=== PATIENT | male | born 1980 | race Caucasian/White ===

== ENCOUNTER 2019-08-18 02:53 | Emergency (ER) | payer SELFPAY ==
--- NOTE | ~2019-08-18 | XR_ITS ---
EXAMINATION: XR chest 2V DATE: 08/18/2019 03:56 INDICATION: 2-3 hours of shortness of breath. TECHNIQUE: PA and lateral views of the chest were obtained. COMPARISON: None FINDINGS: The lungs are clear with no focal airspace opacities, pulmonary edema, pleural effusion or pneumothor ax. The cardiomediastinal silhouette is normal. Mild thoracic spondylosis. IMPRESSION: 1. No acute cardiopulmonary disease. Reviewed, dictated and finalized at location A.
[2019-08-18 02:54] VITALS: BP 163/108; PULSE 86; RESP 20; TEMP 36.5; O2SAT 100
--- NOTE | 2019-08-18 03:02 | ED.GENADULT ---
HPI - General Adult General Chief complaint: Upper Respiratory Infection Stated complaint: throat tightening Time Seen by Provider: 08/18/19 03:01 History of Present Illness HPI narrative: Patient is a 38-year-old male who presents the ER with concerns of possible allergic reaction. Patient reports he is lying down in bed and woke up and he was gagging having trouble breathing. [place] like he had acid in the back of his throat. Symptoms are worse if he lays down flat better if he sits upright. He has had some similar symptoms to this over the last 2 days. Denies history of obstructive sleep apnea. He has no issues breathing or swallowing at this time. No rhinorrhea/productive cough. Patient notes he has had a migraine over the last couple of days for which she is taking a triptan which seems to make things worse. Reports he has no headache at this time. Related Data Home Medications Medication Instructions Recorded Confirmed No Home Medications 08/18/19 08/18/19 Allergies Allergy/AdvReac Type Severity Reaction Status Date / Time No Known Allergies Allergy Verified 08/18/19 02:56 Review of Systems Review of Systems: All systems reviewed & are unremarkable except as noted in HPI and below Constitutional: Constitutional: Denies chills, Denies fever(s) and Denies weakness ENT: Denies dysphagia, Denies nasal congestion and Reports sore throat Cardiovascular: Cardiovascular: Denies chest pain and Denies radiating jaw, neck or arm pain Respiratory: Respiratory: Denies cough, Reports dyspnea and Denies wheezing Gastrointestinal: Gastrointestinal: Denies abdominal pain, Denies nausea and Denies vomiting Neurologic: Denies dizziness, Reports headache(s) and Denies numbness PMFSH Past Medical History Medical History (Updated 08/18/19 @ 04:36 by Yvan Healy MD) No pertinent past medical history Surgical History Surgical History (Updated 08/18/19 @ 03:50 by Yvan Healy MD) No significant past surgical history Social History Social History (Updated 08/18/19 @ 03:50 by Yvan Healy MD) Smoking status: Never smoker Substance use: never Gender identity (if verbalized by the patient): Male Exam Narrative: Exam Narrative: GENERAL: Well-appearing, well-nourished, and in no acute distress. HEAD: Normocephalic, atraumatic. ENT: Mucous membranes moist. No pharyngeal erythema or tonsillar hypertrophy/exudate. Uvula midline and nonedematous. NECK: Supple. CHEST: Clear to auscultation. No respiratory distress. HEART: Regular rate and rhythm. Normal peripheral pulses. ABDOMEN: Soft, nontender, nondistended. EXTREMITIES: Normal range of motion. No edema. NEURO: Alert and oriented x3. PSYCH: Normal mood and affect. Course Course Emergency Course: Patient feels very good at this time. Received Pepcid. Discharge home. Vital Signs Vital signs: Vital Signs Temperature 97.7 F 08/18/19 02:54 Pulse Rate 86 08/18/19 02:54 Respiratory Rate 20 08/18/19 02:54 Blood Pressure 163/108 H 08/18/19 02:54 Pulse Oximetry 100 08/18/19 02:54 Temperature 97.7 F 08/18/19 02:54 Pulse Rate 68 08/18/19 03:58 Respiratory Rate 12 08/18/19 03:58 Blood Pressure 133/98 H 08/18/19 03:58 Pulse Oximetry 97 08/18/19 03:58 Medical Decision Making Vital Signs Vital Signs: Vital Signs Temperature 97.7 F 08/18/19 02:54 Pulse Rate 86 08/18/19 02:54 Respiratory Rate 20 08/18/19 02:54 Blood Pressure 163/108 H 08/18/19 02:54 Pulse Oximetry 100 08/18/19 02:54 Temperature 97.7 F 08/18/19 02:54 Pulse Rate 68 08/18/19 03:58 Respiratory Rate 12 08/18/19 03:58 Blood Pressure 133/98 H 08/18/19 03:58 Pulse Oximetry 97 08/18/19 03:58 Lab Data Result diagrams: 08/18/19 03:47 08/18/19 03:47 Labs: Lab Results 08/18/19 08/18/19 Range/Units 03:47 03:47 WBC 5.1 (4.5-10.0) K/mm3 RBC 4.77 (4.6-6.20) M/m
[2019-08-18] MEDS: FAMOTIDINE 20 MG TABLET PO (03:51)
[2019-08-18 03:55] LABS: Basophils Absolute Auto 0.1 K/mm3 (0.0-0.1); Basophils Percent Auto 1.6 % (0.2-1.2); Eosinophils Absolute Auto 0.2 K/mm3 (0-0.3); Eosinophils Percent Auto 4.5 % (0-4.4); Hemoglobin 14.2 g/dL (14.0-18.0); Immature Granulocyte Absolute 0.01 K/mm3 (0.00-0.031); Immature Granulocyte Percent A 0.2 % (0-0.5); Lymphocytes Absolute Auto 2.09 K/mm3 (0.9-3.2); Lymphocytes Percent Auto 41.1 % (18.3-44.2); Mean Corpuscular HGB Conc 33.8 g/dl (32-36); Mean Corpuscular Hemoglobin 29.8 pg (26-34); Mean Corpuscular Volume 88.1 fl (80-100); Mean Platelet Volume 12.9 fl (7.4-10.4); Monocytes Absolute Auto 0.3 K/mm3 (0.1-0.6); Monocytes Percent Auto 6.5 % (2.6-8.5); Neutrophils Absolute Auto 2.4 K/mm3 (1.3-6.7); Neutrophils Percent Auto 46.1 % (45.5-73.1); Platelet Count Result 166 k/mm3 (150-375); Red Blood Count 4.77 M/mm3 (4.6-6.20); Red Cell Distribution Width 13.8 % (11.5-14.5); White Blood Count 5.1 K/mm3 (4.5-10.0)
[2019-08-18 03:58] VITALS: BP 133/98; PULSE 68; RESP 12; O2SAT 97
[2019-08-18 04:08] LABS: Blood Urea Nitrogen 11 mg/dL (9-20); Carbon Dioxide 28 mmol/L (22-30); Chloride 105 mmol/L (98-107); Estimated Glomerular Filt Rate > 60; Glucose 102 mg/dL (75-110); Potassium 3.9 mmol/L (3.4-5.0); Sodium 138 mmol/L (137-145)
[2019-08-18 04:20] LABS: NT Pro B Type Natriuretic Pept 46 PG/ML (5-100); Troponin I < 0.012 ng/mL (0.000-0.034)
[2019-08-18 04:45] VITALS: BP 134/95; PULSE 67; RESP 16; O2SAT 97
[2019-08-18 04:49] VITALS: BP 134/95; PULSE 70; RESP 20; O2SAT 99
== END 2019-08-18 04:51 | disposition home or self-care (01) ==
PROVIDERS: Emergency Provider Emergency Medicine
DX: J02.9 Acute pharyngitis, unspecified (principal)
CPT/HCPCS: 36415; 71046; 80048; 83880; 84484; 85025; 99284; A9270

== ENCOUNTER 2019-11-03 13:40 | Emergency (ER) | payer SELFPAY ==
[2019-11-03 13:42] VITALS: BP 115/85; PULSE 92; RESP 16; TEMP 36.8; O2SAT 100
--- NOTE | 2019-11-03 14:52 | ED.WOUNDLAC ---
HPI - Wound/Laceration General Chief Complaint: Wound/Laceration Stated Complaint: L 4TH DIGIT WOUND Time Seen by Provider: 11/03/19 13:57 Source: patient Mode of arrival: ambulatory Limitations: no limitations History of Present Illness HPI narrative: Patient presents for evaluation of laceration to the volar aspect of the left ring finger. Patient cut the finger, on a nail and caused a flap. Patient states that he believes he has had a tetanus within the last 5 years. Patient has full range of motion to the extremity and denies bony tenderness or crush injury. Patient states that he washed out the area then came to the emergency room. Patient denies any other concerns. Related Data Allergies Allergy/AdvReac Type Severity Reaction Status Date / Time No Known Allergies Allergy Verified 11/03/19 13:53 Review of Systems Review of Systems: Narrative: CONSTITUTIONAL: Denies fever, chills, or sweats. EYES: Denies visual changes, redness, or discharge. ENT: Denies rhinorrhea, congestion, sore throat, or otalgia. CARDIOVASCULAR: Denies chest pain, palpitations, or edema. RESPIRATORY: Denies cough or dyspnea. GASTROINTESTINAL: Denies abdominal pain, nausea, vomiting, or diarrhea. GENITOURINARY: Denies dysuria or hematuria. SKIN: Reports laceration denies rash or itching. MUSCULOSKELETAL: Denies back pain, joint pain, or myalgia. NEUROLOGIC: Denies headache, numbness, dizziness, or weakness. PSYCHIATRIC: Denies anxiety or depression. PMFSH Past Medical History Medical History (Updated 11/03/19 @ 14:57 by Vega Herrera PA-C) No pertinent past medical history Surgical History Surgical History (Updated 08/18/19 @ 03:50 by Yvan Healy MD) No significant past surgical history Social History Social History (Updated 08/18/19 @ 03:50 by Yvan Healy MD) Smoking status: Never smoker Substance use: never Gender identity (if verbalized by the patient): Male Exam Narrative: Exam Narrative: GENERAL: Well-appearing, well-nourished, and in no acute distress. HEAD: Normocephalic, atraumatic. EYES: PERRLA and EOMI. ENT: Nares clear, no rhinorrhea or epistaxis. Mucous membranes moist. Oropharynx without tonsillar hypertrophy exudate or other lesions. Bilateral TMs pearly singer nonbulging NECK: Supple. No adenopathy or masses. No carotid bruits or JVD CHEST: Clear to auscultation. No respiratory distress. No wheezes rales or rhonchi HEART: Regular rate and rhythm. EXTREMITIES: Normal range of motion. No edema. SKIN: U-shaped flap laceration to the volar aspect of left ring finger. Bleeding is minimal warm, dry, no rash. NEURO: No focal deficits. Alert and oriented x3. PSYCH: Normal mood and affect. Course Vital Signs Vital signs: Vital Signs Temperature 98.3 F 11/03/19 13:42 Pulse Rate 92 11/03/19 13:42 Respiratory Rate 16 11/03/19 13:42 Blood Pressure 115/85 11/03/19 13:42 Pulse Oximetry 100 11/03/19 13:42 Temperature 98.3 F 11/03/19 13:42 Pulse Rate 92 11/03/19 13:42 Respiratory Rate 16 11/03/19 13:42 Blood Pressure 115/85 11/03/19 13:42 Pulse Oximetry 100 11/03/19 13:42 Procedures Laceration Laceration 1: Site: other (Ring finger) Side (If applicable): left Size (cm): 2 Description: flap Depth: simple, single layer Pre-repair: irrigated extensively ====== Skin Level ====== Skin layer closed with: dermabond ====== Subcutaneous Layer ====== ====== Muscle Layer ====== ====== Tendon Layer ====== Discharge Plan Discharge Clinical Impression: Laceration Patient Disposition: Home, Self-Care Condition: Improved Instructions: Antibiotic Form, Laceration (ED) Additional Instructions: Keep wound clean and avoid injury to the area. Allow Dermabond to naturally disintegrate over time and allow wound to heal. Follow-up with primary care if you have any signs of infection. Return
[2019-11-03 15:19] VITALS: BP 136/87; PULSE 86; RESP 18; TEMP 36.6; O2SAT 100
== END 2019-11-03 15:21 | disposition home or self-care (01) ==
PROVIDERS: Emergency Provider Emergency Medicine
DX: S61.215A Laceration without foreign body of left ring finger without damage to nail, initial encounter (principal); W45.0XXA Nail entering through skin, initial encounter
CPT/HCPCS: 12001; 99282

== ENCOUNTER 2023-09-11 15:47 | Emergency (ER) | payer OTHER, SELFPAY ==
[2023-09-11 16:00] VITALS: BP 214/112; PULSE 100; RESP 16; TEMP 37.8; O2SAT 100
[2023-09-11 16:18] VITALS: BP 170/106; BP 185/100
--- NOTE | 2023-09-14 23:16 | ED.DENTAL ---
HPI - Dental/Oral General Chief complaint: Dental/Oral Stated complaint: tooth pain Time Seen by Provider: 09/11/23 16:56 Source: patient, RN notes reviewed and old records reviewed Mode of arrival: ambulatory Limitations: no limitations History of Present Illness HPI Narrative: 42-year-old male to Express Care with complaint of left upper dental pain that started 4 days ago. Patient cannot recall last visit to dentist and reports that he does not currently have a dentist. Patient hypertensive in [facility] states he has taken his medicine today. Patient also endorses that he does not have a PCP. Patient has attempted to treat dental pain at home with [id number] medications with little relief. Patient endorses increased pain and swelling. Patient denies cough, sore throat, difficulty swallowing, shortness of breath, chest pain, jaw pain, ear pain, allergies. Patient hypertensive and febrile in triage. Patient alert and oriented x3. Respirations even and nonlabored. Patient in no acute distress. Related Data Allergies Allergy/AdvReac Type Severity Reaction Status Date / Time No Known Allergies Allergy Verified 11/03/19 13:53 Review of Systems Review of Systems: All systems reviewed & are unremarkable except as noted in HPI and below Constitutional: Constitutional: Reports as per HPI, Reports difficulty sleeping, Denies excessive sweating, Denies headache(s) and Denies poor appetite Eyes: Eyes: Reports no additional eye complaints ENT: Reports as per HPI, Reports dental pain, Denies otalgia, Denies headache(s), Denies hoarseness, Reports mouth pain, Denies neck pain, Denies sore throat and Denies throat swelling Cardiovascular: Cardiovascular: Reports no additional cardiovascular complaints, Denies chest pain and Denies dyspnea Respiratory: Respiratory: Reports no additional respiratory complaints, Denies cough and Denies dyspnea Musculoskeletal: Musculoskeletal: Reports no additional musculoskeletal complaints Neurologic: Reports system reviewed and no additional complaints, except as documented Psychiatric: Psychiatric: Reports no additional psychiatric complaints PMFSH Past Medical History Medical History No pertinent past medical history Surgical History Surgical History No significant past surgical history Social History Social History Smoking status: Never smoker Substance use: never Gender identity (if verbalized by the patient): Male Comments At the time of my signature, I reviewed and agree with the nursing past medical, surgical, social, and family history. There is no relevant family history pertinent to the patient complaint. Exam Const: General: cooperative, no acute distress, alert, anxious, uncomfortable and well nourished Nutritional Appearance: well nourished Orientation/consciousness: patient oriented x3 Limitations: no limitations HENMT: Head: normal to inspection Ears: external ears normal Face/Nose/Sinus: Normal external nose present, Normal nares present, normal facial exam, No erythema and No edema Face and sinus: normal facial exam, no erythema and no edema Mouth: Yes Normal oral and palatal mucosa present Teeth and gingiva: abnormal tooth and associated gingiva, caries, gingiva abnormal diffusely erythematous, tender and receding, multiple restorations and poor dentition Throat: postnasal drainage Eyes: General: appearance normal, both eyes and all related structures Neck: Neck: normal visual inspection, full ROM and no meningeal signs Lymphatic: no lymphadenopathy noted and no lymphedema noted Chest: Chest palpation & inspection: normal inspection of the chest Resp: Effort & Inspection: normal respiratory effort and able to speak in complete sentences Auscultation: clear to auscu
== END 2023-09-11 17:01 | disposition home or self-care (01) ==
PROVIDERS: Emergency Provider Nurse Practitioner Family
DX: K02.9 Dental caries, unspecified (principal); K04.7 Periapical abscess without sinus; S02.5XXA Fracture of tooth (traumatic), initial encounter for closed fracture; X58.XXXA Exposure to other specified factors, initial encounter
CPT/HCPCS: 99213; G0463

== ENCOUNTER 2024-03-14 11:49 | Emergency (ER) | payer OTHER, SELFPAY ==
[2024-03-14 11:54] VITALS: BP 174/108; PULSE 85; RESP 20; TEMP 36.8; O2SAT 100
--- NOTE | 2024-03-14 11:59 | ED_ITS ---
HPI - Male Genitourinary General Chief complaint: Urogenital-Male Stated complaint: Urinary Problem Time Seen by Provider: 03/14/24 12:07 Source: patient, RN notes reviewed and old records reviewed Mode of arrival: ambulatory Limitations: no limitations History of Present Illness HPI Narrative: 43 year old male who presents to express car with complaints of left lower abdominal pain radiating around from left CVA area with pain starting last night and increased pain since this morning Patient reports that he also noted blood in his urine yesterday. Patient reports that he has no urinary frequency or urgency or burning with urination,no fevers nausea or vomiting or any concerns for STD's. MD Complaint: other (Left CVA pain radiating aroundto left lower abdomen) Onset (ago): day(s) (since last night increased pain) Location: left flank and abdomen (left lower abdomen) Severity scale (1-10): 8 Related Data Home Medications ?Medication ?Instructions ?Recorded ?Confirmed ?Last Taken ?Type amlodipine 5 mg tablet mg 03/14/24 Unknown History gabapentin 300 mg capsule mg 03/14/24 Unknown History hydroxyzine HCl 25 mg tablet mg 03/14/24 Unknown History Allergies Allergy/AdvReac Type Severity Reaction Status Date / Time No Known Allergies Allergy Verified 03/14/24 11:58 Review of Systems Review of Systems: CONSTITUTIONAL: Denies fever, chills, or sweats. CARDIOVASCULAR: Denies chest pain, palpitations, or edema. RESPIRATORY: Denies cough or dyspnea. GASTROINTESTINAL: reports left lower abdominal pain, denies any nausea, vomiting, or diarrhea. GENITOURINARY: Denies dysuria, frequency, urgency. reports left flank pain or hematuria. SKIN: Denies rash or itching. MUSCULOSKELETAL: Denies back pain or myalgia. positive for left CVA pain radiating around to left abdomen NEUROLOGIC: Denies headache All systems reviewed & are unremarkable except as noted in HPI and below PMFSH Past Medical History Medical History (Updated 03/16/24 @ 16:53 by Daniella Ocampo NP) Dental abscess Neuropathic pain of both legs Hypertension Anxiety Surgical History Surgical History No significant past surgical history Social History Social History (Updated 03/14/24 @ 12:10 by Daniella L. Damaris, [employer]) Smoking status: Current every day smoker Tobacco type: e-cigarettes/vaping Substance use: never Gender identity (if verbalized by the patient): Male Comments At time of signature, agree with nursing past medical, surgical, social and family history. There is no relevant family history pertinent to the presenting complaint Exam Narrative: GENERAL: Well-appearing, well-nourished, and in some acute distress related to pain HEAD: Normocephalic, atraumatic. NECK: Supple. no lymphadenopathy CHEST: Clear to auscultation. No respiratory distress.SAO2 100% on room air HEART: Regular rate and rhythm. No murmur heard. Normal peripheral pulses. ABDOMEN: Soft, tender left lower abdomen nondistended, normal active bowel sounds. positive for left CVA tenderness, reports that last BM yesterday normal. EXTREMITIES: Normal range of motion. No edema. SKIN: Warm, dry, no rash. NEURO: No focal deficits. Alert and oriented x3. Course Course Emergency Course: Patient is aware of diagnosis, understands and agrees to treatment plan.? Anticipatory guidance given.? Patient agrees to follow-up as directed and is aware of reasons to seek care at the emergency department. Portions of this record may have been created with voice recognition software Level of Care: Express Care Visit Vital Signs Vital signs: Vital Signs Temperature 36.8 C 03/14/24 11:54 Pulse Rate 85 03/14/24 11:54 Respiratory Rate 20 03/14/24 11:54 Blood Pressure 174/108 H 03/14/24 11:54 Pulse Oximetry 100 03/14/24 11:54 Oxygen Delivery Room Air 03/14/24 11:54 Temperature 36.8 C 03/14/24 11:54 Pulse Rate 85 03/14/24 11:54 Respiratory Rate 20 03/14/24 11:54 Blood Pressure 174/108 H 03/14/24 11:54 Pulse Oximetry 100 03/14/24 11:54 Oxygen Delivery Room Air 03/14/24 11:54 Transfer Transfered to: [facility]) Transportation: Other (private car) Transfer rationale: left lower abdominal pain and CVA tenderness with blood noted in urine needs further diagnostic studies and higher level of care. Accepting physician: Eliu Shaw comments: Transfer to [facility] per private car for further evaluation, patient instructed on NPO status MDM - Male Genitourinary MDM Narrative Medical decision making narrative: 1223 Call placed to the ED department of [facility] with condition update, VS, PMH reviewed with Faith RN with Dr Nowak accepting physician. Differential Diagnosis Differential diagnosis: Likely urinary tract infection, urethritis and other (hematuria, left lower abdomen pain, left flank pain, urolithiasis, renal colic) Medical Records Attestation: I reviewed the patient's medical records. Lab Data Attestation: I reviewed the patient's lab results. Lab results narrative: urine dip:see report 3+ blood urine tea colored cloudy 1+ protein Labs: Lab Results 03/14/24 Range/Units 12:04 POC Urine Color Dark POC Urine Clarity Cloudy POC Urine pH 6.0 POC Ur Specif [place] 1.030 POC Urine Protein 1+ (Negative) POC Ur Glucose (UA) Negative (Negative) POC Urine Ketones Negative (Negative) POC Urine Blood 3+ (Negative) POC Urine Nitrite Negative (Negative) POC Urine Bilirubin Negative (Negative) POC Urine Urobilinogen 0.2 POC U Leukocyte Esteras Negative (Negative) reviewed Critical Care Time Critical Care Time Critical Care Time: No Discharge Plan Discharge Clinical Impression: Abdominal pain, left lower quadrant, Left flank pain Hematuria Qualifiers: Hematuria type: other microscopic Qualified Code(s): R31.29 - Other microscopic hematuria Patient Disposition: Acute Care Hospital Condition: Stable Patient Language: Austrian Prescriptions: No Action amlodipine 5 mg tablet gabapentin 300 mg capsule hydroxyzine HCl 25 mg tablet Follow-up/Referrals: PHYSICIAN NOT ON STAFF,NONSTAFF [Primary Care Provider] - Time of Disposition: 12:29 Quality Carly Coma Scale Eyes: Open Verbal: Oriented and Alert Motor: Follows Commands Carly Coma Total Score: 15
[2024-03-14 12:06] LABS: EDUAAPPEAR Cloudy; EDUABILI Negative (Negative); EDUABLOOD 3+ (Negative); EDUACOLOR1 Dark; EDUAGLUCOSE Negative (Negative); EDUAKETONE Negative (Negative); EDUALEUKO Negative (Negative); EDUANITRATE Negative (Negative); EDUAPROTEIN 1+ (Negative); EDUAUROBILI 0.2
--- OUTSIDE RECORDS SUMMARY | 2024-03-14 12:44 | XMS_ITS | Patient Health Record ---
Author Organization [facility] alth Planning Address [address] [place] [id number] Care Team Providers Care Steel Fabricating Supervisor Name Role Phone Bertin Maravilla Primary Care Provider Reason For Referral No Information Medications Medication SIG (Take, Route, Frequency, Duration) Notes Start Date End Date Status Ambien 10 MG 1 Tablet Orally At bedtime Active Ibuprofen 600 MG 1 Tablet Orally Thre e times a day 10/19/2017 Active Melatonin 5 MG 1 Tablet Orally At bedtime Active Gabapentin 300 MG 1 capsule Orally three times a day 10/19/2017 Active Escitalopram Oxalate 10 MG 2 tablets Orally Daily 10/19/2017 Active Suboxone 8-2 MG 1 film under the tongue and allow to dissolve Sublingual Once a day 10/29/2017 Active hydrOXYzine Pamoate 50 MG 1 capsule Orally every 6 hrs as needed 10/19/2017 Active Depakote 250 MG take 1 tablet (250MG ) by oral route in the morning and two at night. Oral ([facility]) 11/19/2012 Not-Taking Social History Tobacco Use: Social History Observation Description Date Details (start date - stop date) Never Smoker NA - NA Tobacco Use/Smoking Question Answer Notes Are you a nonsmoker Alcohol Screen (Audit-C) Question Answer Notes Did you have a drink containing alcohol in the p ast year? No Points 0 Interpretation Negative Problems Problem Type SNOMED Code ICD Code Onset Dates Problem Status W/U Status Risk Notes Problem 544701132 Bipolar 1 disorder (F31.9) Active confirmed Problem 2945475 Opiate abuse, continuous (F11.10) Active confirmed Problem 11089995 TOREY (generalized anxiety disorder) (F41.1) Active confirmed Plan Of Treatment No Information Insurance Providers Payer Name Payer Address Payer Phone Subscriber Number Group Number Insured Name Patient Relationship to Insured Coverage Start Date Coverage End Date [facility] [address] [place] [address] [id number] Jacob Rollins Self - patient is the insured 8 [facility] FFS [address] [place] [address] [id number] Jacob Rollins Self - patient is the insured 8 [facility] Non Billable [address] [facility] [place] [address] [id number] Jacob Rollins Self - patient is the insured 8 Medical (General) History Medical History History ICD Code Med_System: pulmonary; Disease: Episodes of some difficulty breathing Med_System: neurologic; Disease: Hx of s eizures Med_System: gastrointestinal; Disease: H x of acid reflux
== END 2024-03-14 12:29 | disposition short-term general hospital (02) ==
PROVIDERS: Emergency Provider Registered Nurse
DX: R10.32 Left lower quadrant pain (principal); R10.9 Unspecified abdominal pain; R31.29 Other microscopic hematuria; F17.290 Nicotine dependence, other tobacco product, uncomplicated; I10 Essential (primary) hypertension; G62.9 Polyneuropathy, unspecified; F41.9 Anxiety disorder, unspecified
CPT/HCPCS: 81003; 87086; 99212; 99213; G0463

== ENCOUNTER 2024-11-08 15:49 | Emergency (ER) | payer OTHER, SELFPAY ==
--- OUTSIDE RECORDS SUMMARY | 2024-11-08 15:51 | XMS_ITS | Patient Health Record ---
Author Organization [facility] Address [address] [facility] [address] [place] [address] Care Team Providers Care Office Systems Technology Instructor Name Role Phone Bertin Maravilla Primary Care Provider [phone] Reason For Referral No Information Medications Medication [...] Problem Status W/U Status Risk Notes Problem Bipolar 1 disorder (401821916) Bipolar 1 disorder (F31.9) Active confirmed Problem Opioid abuse (0796002) Opiate abuse, continuous (F11.10) Active confirmed Problem Generalized anxiety disorder (95503661) TOREY (generalized anxiety disorder) (F41.1) Active confirmed Plan Of Treatment No Information Insurance Providers Payer Name Payer Address Payer Phone Subscriber Number Group Number Insured Name Patient Relationship to Insured Coverage Start Date Coverage End Date [facility] [address] [facility] [place] [address] [id number] Jacob Rollins Self - patient is the insured 8 [facility] FFS [address] [place] [address] [id number] Jacob Rollins Self - patient is the insured 8 [facility] Non Billable [address] [facility] [place] [address] [id number] Jacob Rollins Self - patient is the insured 8 Medical (General) History Medical History History ICD Code Med_System: pulmonary; Disease: Episodes of some difficulty breathing Med_System: neurologic; Disease: Hx of s eizures Med_System: gastrointestinal; Disease: H x of acid reflux
--- OUTSIDE RECORDS SUMMARY | 2024-11-08 15:51 | XMS_ITS | Encounter Summary ---
Author Organization [facility] Address [address] [place] [address] Phone Care Team Providers Care Block Tester Name Role Phone Max Hammond APRN, CNP Primary Care Pr ovider Ankush Agee MD Unavailable [phone] Reason for Visit * Reason Comments Medication Refill Encounter Details Date Type Department Care Team (Late st Contact Info) Description 04/28/2024 Refill [facility] - Family Medicine [facility] [address] [place] [address] Max Hammond APRN, CNP [address] [address] Medication Refill Social History Tobacco Use Types Packs/Day Years Used Date Smoking Tobacco: Former Cigarettes Passive Smoke Exposure: Current Smokeless Tobacco: Never Alcohol Use Standard Drinks/Week Comments Not Currently 0 (1 standard drink = 0.6 oz pur e alcohol) [facility] Utilities Answer Date Recorded In the past 12 months has [employer], gas, oil, or water company threatened to shut off services in your home? No 04/17/2024 Social Connection and Isolation Panel Answer Date Recorded In a typical week, how many times do you talk on the phone with family, friends, or neighbors? Once a week 04/17/19 How often do you get togethe r with friends or relatives? Never 04/17/2024 How often do you attend chur ch or hindu services? Never 04/17/2024 Do you belong to any clubs o r organizations such as rastafari groups, unions, fraternal or athletic groups, or school groups? Yes 04/17/2024 How often do you attend meet ings of the clubs or organizations you belong to? 1 to 4 times per year 04/17/2024 Are you , , di vorced, , never , or living with a partner? 04/17/2024 AUDIT-C Answer Date Recorded Q1: How often do you have a drink containing alcohol? Never 04/17/2024 Q2: How many drinks containi ng alcohol do you have on a typical day when you are drinking? Patient does not drink Q3: How often do you have si x or more drinks on one occasion? Never 04/17/2024 Overall Financial Resource Strain (CARDIA) Answe r Date Recorded How hard is it for you to pa y for the very basics like food, housing, medical care, and heating? Somewhat hard 04/17/2024 PHQ-2 Answer Date Recorded Total Score - Questions 1-9 0 04/02 [facility] - Occupational Stress Questionnaire Answer Date Recorded Do you feel stress - tense, restless, nervous, or anxious, or unable to sleep at night because your mind is troubled all the time - these days? Very much 04/17/2024 Exercise Vital Sign Answer Date Recorde d On average, how many days pe r week do you engage in moderate to strenuous exercise (like a brisk walk)? 7 days 04/17/2024 On average, how many minutes do you engage in exercise at this level? 150+ min 04/17/2024 Hunger Vital Sign Answer Date Recorded Within the past 12 months, y ou worried that your food would run out before you got the money to buy more. Never true 04/17/19 25 Within the past 12 months, t he food you bought just didn't last and you didn't have money to get more. Never true 04/17/2024 PRAPARE - Transportation Answer Date Re corded In the past 12 months, has l ack of transportation kept you from medical appointments or from getting medications? No 04/02 In the past 12 months, has l ack of transportation kept you from meetings, work, or from getting things needed for daily living? No 04/17/2024 Housing Stability Vital Sign Answer Emmanuel e Recorded In the last 12 months, was t here a time when you were not able to pay the mortgage or rent on time? No 04/17/2024 In the past 12 months, how m any times have you moved where you were living? 0 04/17/2024 At any time in the past 12 m [facility], were you homeless or living in a custodial (including now)? No 04/17/2024 Sexually Active Control Partners Comments Yes None Female Sex and Gender Information Value Date Recorded Sex Assigned at Not on file Legal Sex Male 2:56 PM CDT Gender Identity Not on file Sexual Orientation Not on file documented as of this encounter Miscellaneous Notes * Telephone Encounter - Leola Stanford RN - 04/29/2024 8:15 AM CST Signed 1 week ago (04/17/2024): hydrOXYzine (ATARAX) 25 MG Tablet Sig: Take 0.5 Tablets by mouth every 8 hours as needed for Anxiety. Disp: 90 Tablet Refills: 1 Signed by: Garrick Lyons MD ERSITY PRESIDENT documented in this encounter Plan of Treatment Upcoming Encounters Date Type Department Care Team (Late st Contact Info) Description 04/10/2025 1:30 PM UNIVERSITY PRESIDENT [facility] [address] [place] [address] Max Hammond APRN, YOSEPH #[address] [address] documented as of this encounter Visit Diagnoses Diagnosis TOREY (generalized anxiety disorder) Generalized anxiety disorder documented in this encounter Additional Health Concerns Assessment Noted Time PHQ-9 Depression Total Score: 0 04/17/19 25 3:19 PM UNIVERSITY PRESIDENT documented as of this encounter Care Teams Block Tester Relationship Specialty Start Date End Date Max Hammond APRN, SALESPERSON [employer] #2 [facility] [address] [place] [address] PCP - General Advanced Practice Nurse 10/08/23 Ankush Agee MD #2 [facility] [address] [place] [address] Consulting Physician Urology 07/09/24 documented as of this encounter
--- OUTSIDE RECORDS SUMMARY | 2024-11-08 15:51 | XMS_ITS | Clinical Summary ---
Author Organization [facility] Address [address] [place] [address] Phone Care Team Providers Care Glass Carrier Name Role Phone Max Hammond APRN, YOSEPH Primary Care Pr ovider Ankush Agee MD Unavailable [phone] Allergies No known active allergies Medications metoprolol Succinate (TOPROL-XL) 25 MG TABLET SR 24 HR Take 1 Tablet by mouth daily. 90 Tablet 3 04/17/19 25 Active hydrOXYzine (ATARAX) 10 MG TabletIndication s:Anxiety TAKE 1 TABLET BY MOUTH EVERY 8 HOURS NEEDED FOR ANXIETY 90 Tablet 2 07/29/19 25 Active amLODIPine (NORVASC) 10 MG TabletIndication s:Primary hypertension Take 1 Tablet by mouth daily. 90 Tablet 3 09/27/19 25 Active EPINEPHrine (EPIPEN) 0.3 MG/0.3ML Solution Auto-injectorInd ications:Food allergy 0.3 mL by Intramuscular route once as needed for Anaphylaxis. Then call 911 and proceed to ER. 2 mL 09/27/19 25 Active gabapentin (NEURONTIN) 400 MG CapsuleIndicatio ns:TOREY (generalized anxiety disorder) Take 2 Capsules by mouth 3 times daily. 180 Capsule 5 10/11/19 25 Active gabapentin (NEURONTIN) 400 MG CapsuleIndicatio ns:TOREY (generalized anxiety disorder) Take 2 Capsules by mouth 3 times daily. 180 Capsule 5 09/27/19 25 025 Discontin ued(Reord er) Active Problems Problem Noted Date Diagnosed Date Food allergy 09/26/2024 Hyperglycemia 04/17/2024 Claudication of both lower extremities Chronic pain of right knee 04/17/2024 Chronic heel pain, left 04/17/2024 History of kidney stones 04/17/[address] nodules on CT 04/17/2024 HLD (hyperlipidemia) 2023 Mononeuropathy 11/23/2023 TOREY (generalized anxiety disorder) 11/23/2023 Primary hypertension 11/23/2023 Encounters Date Type Department Care Team Description 10/24/2024 Telephone [facility] #[address] [place] [address] Max Hammond APRN, CNP Appointment 10/13/2024 Telephone [facility] [address] [place] [address] Max Hmamond APRN, CNP Prior Authorization 09/26/2024 1:30 PM CDT Office Visit [facility] [address] [place] [address] Max Hammond APRN, CNP Primary hypertension (Primary Dx); TOREY (generalized anxiety disorder); Food allergy; Screening for colon cancer Discharge Disposition: Discharged to home or Selfcare 09/26/2024 Travel 08/20/2024 Refill [facility] [address] [place] [address] Max Hammond APRN, YOSEPH Medication Refill from Last 3 Months Immunizations Immunization Administration Dates Next Due Covid-19, Mrna, Lnp-s, Pf, 30 Mcg/0.3 Ml Dose (P moezer) 12/31/2020,2020 Influenza,Split Virus,Trivalent,Injectable,PF Td Vaccine (preservative free) 01/17/2015 Family History Medical History Relation Name Comments No Known Problems Father No Known Problems Mother Relation Name Status Comments Father Mother Social History Tobacco Use Types Packs/Day Years Used Date Smoking Tobacco: Former Cigarettes Passive Smoke Exposure: Current Smokeless Tobacco: Never Tobacco Cessation:Counseling Given: No Alcohol Use Standard Drinks/Week Comments Not Currently 0 (1 standard drink = 0.6 oz pur e alcohol) [facility] Utilities Answer Date Recorded In the past 12 months has th e electric, gas, oil, or water company threatened to [...] often do you attend chur ch or sikhism services? Never 04/17/2024 Do you belong to any clubs o r organizations such as spiritism groups, unions, fraternal or athletic groups, or [...] Total Score - Questions 1-9 0 04/02 [facility] of Occupat ional Health - Occupational Stress [...] any time in the past 12 m [facility], were you homeless or living in a residential (including now)? No 04/17/2024 Sexually Active Control Partners Comments Yes None Female Sex and Gender Information Value Date Recorded Sex Assigned at Not on file Legal Sex Male 2:56 PM CDT Gender Identity Not on file Sexual Orientation Not on file Last Filed Vital Signs Vital Sign Reading Time Taken Comments Blood Pressure 136/82 09/26/2024 1:16 PM CDT Pulse 79 09/26/2024 1:16 PM CDT Temperature 36.4 C (97.6 F) 09/26/2024 1:16 PM CDT Respiratory Rate 16 09/26/2024 1:16 PM CDT Oxygen Saturation 94% 09/26/2024 1:16 PM CDT Inhaled Oxygen Concentration - - Weight 133.8 kg (295 lb) 09/26/2024 1:16 PM CDT Height 182.9 cm (6') 09/26/2024 1:16 PM CDT Body Mass Index 40.01 09/26/2024 1:16 PM CDT Plan of Treatment Upcoming Encounters Date Type Department Care Team (Late st Contact Info) Description 04/10/2025 1:30 PM TRANSITIONAL STUDIES INSTRUCTOR [facility] - [place] [address] [place] [address] Max Hammond, DIRECTOR CLINICAL INFORMATION SERVICES, SHIPPING RECEIVING MANAGER [address] [address] Health Maintenance Due Date Last Done Comments TdaP Immunization 1978 Hepatitis B Immunization (1 of 3 - 19+ 3-dose series) 1997 Human Papillomavirus (HPV) Immunization (1 - 3-dose SCDM series) 2005 SARS-COV-2 Immunization ( season) 2023 12/31/2020, 2020 Cologuard 12/11/2023 Colonoscopy 12/11/2023 Colorectal Cancer Screening 12/11/2023 Immunochemical Fecal Occult Blood 12/11/2023 Influenza Immunization (#1) 2024 04/17/2024 Respiratory Syncytial Virus (RSV) Immunization (Adult) (1 - 1-dose 75+ series) 2053 DTaP/Tdap/Td Immunization Discontinued 01/17/2015 Hepatitis C Virus (HCV) Screening Completed 12/07/2023 Meningococcal Immunization (ACWY) Aged Out No longer eligible based on patient's age to complete this topic Pneumococcal Immunization Combined Aged Out No longer eligible based on patient's age to complete this topic Rotavirus Immunization Aged Out No lo nger eligible based on patient's age to complete this topic Procedures Procedure Name Priority Date/Time Associated Diagnosis Comments HEPATITIS C ANTIBODY Routine 12/07/2023 8:21 AM CDT Encounter for hepatitis C screening test for low risk patient from Last 3 Months or Most Recently Relevant to Health Maintenance Results * HEPATITIS C ANTIBODY (12/07/2023 8:21 AM CDT) hepatitis C antibody 0.48 <1 S/CO 12/07/2023 3:28 PM CDT [facility] Comment: Signal/Cutoff ratio < 0.79 is Nondetected Signal/Cutoff ratio 0.80-0.99 is Grayzone Signal/Cutoff ratio > 0.99 is Detected Supplemental assays are recommended if signal/cutoff ratio is >/=1.00. Signal/cutoff ratio result >/= 5.00 is 97% predictive of positivity for recombinant immunoblot assay (RIBA) and will be reported to the [place] Department of Public Health as required. Blood Venipuncture / Unknown 12/07/2023 8:21 AM CDT 12/07/2023 8:53 AM CDT us Max Hammond APRN, CNP CHEMISTRY ORDERA BLES Final Result [facility] [address] [place] [address], from Last 3 Months or Most Recently Relevant to Health Maintenance Insurance [employer] Care Teams Glass Carrier Relationship Specialty Start Date End Date Max Hammond APRN, YOSEPH #2 [facility] [address] [place] [address] PCP - General Advanced Practice Nurse 10/08/23 Ankush Agee MD #2 [facility] [address] [place] [address] Consulting Physician Urology 07/09/24
--- OUTSIDE RECORDS SUMMARY | 2024-11-08 15:51 | XMS_ITS | Clinical Summary ---
Author Organization [facility] Address [address] [place] [address] Care Team Providers Care Bottom Painter Name Role Phone KotaHoward shawdicta CUP TRIMMING MACHINE OPERATOR-LOAN SERVICING SPECIALIST Primary Care Provid er Source Comments [facility],non-owned Affiliates and Associated Physician Practices is amultiple site organization consisting of ambulatory clinics and hospital sitesin [place], [place], [place] and [place]. This disclosure is being madepursuant to the Care Everywhere program and may not contain all information available regarding this patient. Last updated 17.[facility] [employer] Gentlemen Allergies Active Allergy Reactions Criticality Noted Date Comments Hydrocodone-Acetaminophen Nausea and/or Vomiting 07/09/2016 Medications * Be aware that medications may not be up to date on this document. Alwaysverify current medications with the patient. gabapentin (NEURONTIN) 300 MG capsule Take 600 mg by mouth 3 times daily Active ClonazePAM (KLONOPIN PO) Take by mouth as needed Active nabumetone (RELAFEN) 500 MG tablet Take by mouth 2 times daily Unknown mg Not taking every day, takes prn Active orphenadrine citrate CR 12hr (NORFLEX) 100 MG tablet Take 1 tablet by mouth every 12 hours as needed for Muscle Spasms 15 tablet 05/06/2017 Active Active Problems Problem Noted Date Diagnosed Date Smoking 01/05/2014 Overview (07/02/2024): IMO 07/02/2024 Hyperglycemia 01/05/2014 HTN (hypertension) 01/05/2014 Low back pain 01/05/2014 Overview (02/07/2015): Immunizations Immunization Administration Dates Next Due TD (ADULT), 5 LF TETANUS TOXOID, ADSORBED, PF Family History Medical History Relation Name Comments Seizures Brother Heart Disease Maternal Grandfather Diabetes Maternal Grandmother Relation Name Status Comments Brother Father Alive Maternal Grandfather Maternal Grandmother Mother Alive Social History Tobacco Use Types Packs/Day Years Used Date Smoking Tobacco: Every Day Cigarettes Smokeless Tobacco: Never Comments:states he vapes Alcohol Use Standard Drinks/Week Comments No 0 (1 standard drink = 0.6 oz pur e alcohol) Sex and Gender Information Value Date Recorded Sex Assigned at Not on file Legal Sex Male 11:06 AM CDT Gender Identity Not on file Sexual Orientation Not on file Last Filed Vital Signs Vital Sign Reading Time Taken Comments Blood Pressure 124/73 05/06/2017 11:11 AM [facility] Pulse 101 05/06/2017 11:04 AM [facility] Temperature 37.1 C (98.8 F) 05/06/2017 8:57 AM [facility] Respiratory Rate 20 05/06/2017 11:04 AM [facility] Oxygen Saturation 97% 05/06/2017 11:04 AM [facility] Inhaled Oxygen Concentration - - Weight 124.3 kg (274 lb) 05/06/2017 8:57 AM [facility] Height 182.9 cm (6') 05/06/2017 8:57 AM [facility] Body Mass Index 37.16 05/06/2017 8:57 AM [facility] Plan of Treatment Health Maintenance Due Date Last Done Comments COLOGUARD (AGES 45-75) - COL ON CA SCREENING 1978 COLON MONITORING 1978 COLONOSCOPY - COLON CA SCREENING 1978 CT COLONOGRAPHY - COLON CA SCREENING 1978 Colorectal Cancer Screening 1978 FIT - COLON CA SCREENING 1978 FLEX SIG - COLON CA SCREENING 1978 LIPID TESTING 1978 HIV SCREENING 1993 HEPATITIS C SCREENING 12/05/1996 HEPATITIS B VACCINE (1 of 3 - 19+ 3-dose series) 1997 PNEUMOCOCCAL VACCINE (1 of 2 - PCV) 1997 HPV VACCINE (1 - 3-dose SCDM series) 2005 COVID-19 VACCINE (2023-2 5 season) 2023 DEPRESSION SCREENING 04/02/2024 INFLUENZA VACCINE (#1) 2024 DTAP/TDAP/TD VACCINES (2 - T d or Tdap) 01/17/2025 01/17/2015 ZOSTER VACCINE (1 of 2) 2028 HIB VACCINE Aged Out No longer eligi ble based on patient's age to complete this topic MENINGOCOCCAL (Group B) VACC INE SHARED DECISION-MAKING Aged Out No longer eligibl e based on patient's age to complete this topic MENINGOCOCCAL GROUPS A/C/Y/W VACCINE Aged Out No longer eligible b ased on patient's age to complete this topic Insurance [place] GENER[place] [facility] Reaction [facility] TPL THIRD LIBERTARIAN LIABILITY Member Subscriber Plan / Payer (Ef fective for All Dates) Name:Jacob Zazueta Relation to Subscriber:Self Name:Jacob Zazueta Payer ID:Not on file Group ID:Not on file Type:Third Constitution Party Liability Address: unknown MEDICAID [place] TPL THIRD LIBERTARIAN LIABILITY * Guarantor: [employer] Account Type Relation to Patient Date of Phone Billing Address Company Employer [employer] [address] [facility] Care Teams Bottom Painter Relationship Specialty Start Date End Date Nadine Blank APRN-LOAN SERVICING SPECIALIST [address] [place] [id number] PCP - General Nurse Practitioner Family 05/23/17
[2024-11-08 15:58] VITALS: BP 157/108; PULSE 94; RESP 20; TEMP 37.2; O2SAT 99
--- NOTE | 2024-11-08 16:05 | ED_ITS ---
HPI - Dental/Oral General Chief complaint: Dental/Oral Stated complaint: poss sinus infection Time Seen by Provider: 11/08/24 16:05 Source: patient Mode of arrival: ambulatory Limitations: no limitations History of Present Illness HPI Narrative: Jacob is a 43-year-old male patient presenting to the clinic today with complaints of dental pain/sinus pain. He reports he is having pain to the right upper gums/maxillary sinuses. Symptoms started 2 days ago but was worse last night. Denies any fevers, chills, body aches. No nasal congestion. States he feels as though gets worse when he lays down. Feels as though it is throbbing with his heartbeat. Denies any chest pain or shortness of breath. Has very poor dentition and is needing take have all his top teeth removed but he cannot afford to have this done at this time. Related Data Home Medications ?Medication ?Instructions ?Recorded ?Confirmed ?Last Taken ?Type amlodipine 5 mg tablet mg 03/14/24 Unknown History gabapentin 300 mg capsule mg 03/14/24 Unknown History metoprolol succinate 25 mg mg PO 11/08/24 Unknown History tablet,extended release 24 hr Allergies Allergy/AdvReac Type Severity Reaction Status Date / Time No Known Allergies Allergy Verified 11/08/24 15:58 [facility] Past Medical History Medical History (Updated 11/08/24 @ 16:09 by Froylan Cornelius APRN) Dental abscess Neuropathic pain of both legs Hypertension Anxiety Surgical History Surgical History No significant past surgical history Social History Social History (Updated 03/14/24 @ 12:10 by Daniella Ocampo NP) Smoking status: Current every day smoker Tobacco type: e-cigarettes/vaping Substance use: never Gender identity (if verbalized by the patient): Male Comments At the time of my signature, I reviewed and agree with the nursing past medical, surgical, social, and family history. There is no relevant family history pertinent to the patient complaint. Exam Narrative: General: Well-developed, well nourished, in no apparent distress Head: Normocephalic, atraumatic Eyes: Pupils equally round and reactive to light bilaterally, EOM intact, sclera and conjunctive clear, no discharge, lids normal Ears: TMs intact and clear, ear canals clear, no drainage, grossly hearing normal. Nose: Nares patent, clear discharge, no inflammation, no sinus tenderness. Mouth: Oropharynx without lesions or masses, very poor dentition, MMM. Gingival swelling to the right upper gums, no palpable abscess Neck: Supple, trachea midline, no enlargement of anterior or posterior cervical nodes, no thyroid masses or goiter palpable. Cardio: Regular rate and rhythm, s1 and s2 normal, no murmur appreciated. Resp: Clear to auscultation bilaterally anteriorly and posteriorly, no rhonchi, rales, wheezing or rubs Course Course Emergency Course: Portions of this record may have been created with voice recognition software. Level of Care: Express Care Visit Vital Signs Vital signs: Vital Signs Temperature 37.2 C 11/08/24 15:58 Pulse Rate 94 11/08/24 15:58 Respiratory Rate 20 11/08/24 15:58 Blood Pressure 157/108 H 11/08/24 15:58 Pulse Oximetry 99 11/08/24 15:58 Oxygen Delivery Room Air 11/08/24 15:58 Temperature 37.2 C 11/08/24 15:58 Pulse Rate 94 11/08/24 15:58 Respiratory Rate 20 11/08/24 15:58 Blood Pressure 157/108 H 11/08/24 15:58 Pulse Oximetry 99 11/08/24 15:58 Oxygen Delivery Room Air 11/08/24 15:58 Vital signs reviewed MDM - Dental/Oral MDM Narrative Medical decision making narrative: At the time of visit patient is resting comfortably on the exam table. Patient appears to be nontoxic. Complaints of dental pain/sinus pain. He reports he is having pain to the right upper gums/maxillary sinuses. Symptoms started 2 days ago but was worse last night. Denies any fevers, chills, body aches. No nasal congestion. States he feels as though gets worse when he lays down. Feels as though it is throbbing with his heartbeat. Denies any chest pain or shortness of breath. Has very poor dentition and is needing take have all his top teeth removed but he cannot afford to have this done at this time. Plan: I suspect patient has a dental infection. Prescription for amoxicillin was sent to the pharmacy. Supportive measures were discussed with the patient and they voiced understanding discharge instructions and agrees to treatment plan. Return precautions review. Differential Diagnosis Differential diagnosis: Likely gingival abscess, dental caries, toothache, dental abscess, fracture of tooth and aphthous ulcer Discharge Plan Discharge Clinical Impression: Dental infection Patient Disposition: Home Condition: Stable Instructions: Antibiotic Form, Toothache (ED) Additional Instructions: Take medications as prescribed-amoxicillin Increase fluids and stay well hydrated May take Tylenol/Motrin as needed for pain or fever May apply Orajel to the affected area to help alleviate pain May apply warm or cool compress to the affected area to help alleviate pain Follow-up with your dentist as soon as possible Patient Language: Venezuelan Prescriptions: New amoxicillin 875 mg tablet 875 mg PO Q12H 10 Days Qty: 20 0RF No Action metoprolol succinate 25 mg tablet extended release 24 hr PO amlodipine 5 mg tablet gabapentin 300 mg capsule Follow-up/Referrals: PHYSICIAN NOT ON STAFF,NONSTAFF [Primary Care Provider] - Time of Disposition: 16:09 Quality NIHSS Nursing Documentation ED NIHSS nursing documentation: reviewed/agree
== END 2024-11-08 16:13 | disposition home or self-care (01) ==
PROVIDERS: Emergency Provider Nurse Practitioner Family
DX: K04.7 Periapical abscess without sinus (principal); F17.290 Nicotine dependence, other tobacco product, uncomplicated; I10 Essential (primary) hypertension; G62.9 Polyneuropathy, unspecified
CPT/HCPCS: 99213; G0463